=== PATIENT | female | born 1945 | race Caucasian/White ===

== ENCOUNTER → 2017-06-02 | Day surgery (SDC) | payer OTHER ==
[~2017-06-02] MED LIST: Lactated Ringers 1,000 ML IV SCH; Propofol 200 MG/20 ML SDV IV ONE
[2017-06-02 08:18] VITALS: BP 128/66
--- NOTE | 2017-06-02 08:48 | OR ---
DATE OF OPERATION: 06/02/2017 PREOPERATIVE DIAGNOSIS: HISTORY OF POLYPS. POSTOPERATIVE DIAGNOSIS: HISTORY OF POLYPS. SURGEON: Gutierrez Conley MD PROCEDURE: FULL-LENGTH COLONOSCOPY WITH FORCEPS POLYP REMOVAL X1. 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 COMPLICATIONS: None. SPECIMEN: Small hyperplastic polyp, sigmoid colon. FINDINGS: 1. Colonoscopy to deep right colon. 2. Extremely poor prep. 3. Hyperplastic polyps/small tubular adenoma, sigmoid colon. RECOMMENDATIONS: Follow up colonoscopy in 5 years. INDICATIONS: The patient has a history of prior polyp removals about approximately years ago. Dr. Escobar sent her for a followup procedure. DESCRIPTION OF PROCEDURE: The patient was prepped and draped, placed in the left lateral decubitus position. A lubricated Olympus colonoscope was inserted and with some degree of difficulty advanced deep into the right colon. The patient had poor prep, it was hard to visualize almost anything past the hepatic flexure. She does have a very long and redundant colon which made the scope difficult in the first place, but bowel prep was extremely poor and visualization was hard throughout. Once we got over into the right colon, we could not see much at all and the patient has a very hard time keeping air in her colon, so it was difficult to suction as there was a lot of particulate food matter. We elected to stop just past the hepatic flexure. Upon withdrawal, the transverse colon appeared for the most part benign. I could find no other lesions. Although again, visualization was difficult. Visualization got a little bit better in the left colon. The descending area appeared benign and around 50 cm the patient did have a small flat hyperplastic-appearing polyp in the sigmoid colon and removed with a cold forceps biopsy, it appeared to be its entirety. Again it was very difficult over here because there was so much liquid stool and the patient had a hard time retaining any air. I did not see any other masses, lesions or polyps in the sigmoid colon. There were no significant diverticulae. Rectosigmoid area and rectal vault appeared benign. Retroflexion in the rectum showed no perianal lesions. Air was suctioned and the scope was removed without complication. MARY JANE/JEANETTE /[id number]
== END ==
LOC: CC.SDS 06:16
PROVIDERS: ATTEND Family Medicine
DX: D12.5 Benign neoplasm of sigmoid colon (principal); J01.90 Acute sinusitis, unspecified; F41.9 Anxiety disorder, unspecified; M19.90 Unspecified osteoarthritis, unspecified site; J30.9 Allergic rhinitis, unspecified; N60.19 Diffuse cystic mastopathy of unspecified breast; E78.5 Hyperlipidemia, unspecified; E03.9 Hypothyroidism, unspecified; M81.0 Age-related osteoporosis without current pathological fracture; E55.9 Vitamin D deficiency, unspecified; Z88.5 Allergy status to narcotic agent; Z86.010 Personal history of colon polyps; Z98.890 Other specified postprocedural states; Z79.899 Other long term (current) drug therapy; Z79.890 Hormone replacement therapy; Z88.8 Allergy status to other drugs, medicaments and biological substances; Z79.82 Long term (current) use of aspirin; Z86.73 Personal history of transient ischemic attack (TIA), and cerebral infarction without residual deficits
CPT/HCPCS: 45380; J2704; J7120